=== PATIENT | female | born 1985 | race African-American/Black ===

== ENCOUNTER 2018-04-25 02:46 | Emergency (ER) | payer BC ==
[~2018-04-25] VITALS: Ht 152.4 cm; Wt 70.3 kg
[2018-04-25 02:46] VITALS: BP 132/84
[2018-04-25] MEDS ORDERED: KETOROLAC 60 MG/2 ML VIAL. IM ONE (03:45)
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
[2018-04-25] MEDS ORDERED: BUTA1CAP31 PO (04:22)
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
== END 2018-04-25 04:30 | disposition home or self-care (01) ==
LOC: ER 02:46
DX: R51 Headache (principal); F32.9 Major depressive disorder, single episode, unspecified; F41.9 Anxiety disorder, unspecified; F17.210 Nicotine dependence, cigarettes, uncomplicated; F10.20 Alcohol dependence, uncomplicated; Y90.9 Presence of alcohol in blood, level not specified
CPT/HCPCS: 70450; 96372; 99284; J1885